=== PATIENT | male | born 1940 | race Caucasian/White ===

== ENCOUNTER → 2019-03-05 | Outpatient (CLI) | payer OTHER ==
[~2019-03-05] MED LIST: ACETAMINOPHEN325 MG PO; ADULT LOW DOSE81 MG PO; ADVAIR; ADVAIR 250-501 EACH INH; ASPIR 8181 MG PO; ATORVASTATIN CA40 MG PO; CARVEDILOL6.25 MG PO; COREG6.25 MG PO; IMDUR 30 MG TAB30 M1 PO; NITROGLYCERIN0.4 MG SUBLING; PLAVIX 75 MG TA75 M1 PO; RANEXA500 MG PO; VENTOLIN HFA 1818 GM INH
== END ==
LOC: M.ULTRA 14:30
DX: N28.89 Other specified disorders of kidney and ureter (principal); R33.9 Retention of urine, unspecified

== ENCOUNTER 2019-06-14 20:09 | Emergency (ER) | payer OTHER ==
[~2019-06-14] VITALS: Ht 170.2 cm; Wt 88.5 kg
[2019-06-14] MEDS ORDERED: NOHOMEMEDICATIONS (20:14)
[2019-06-14 20:37] LABS: ABSOLUTE BASOPHILS 0.1 thou/uL (0.0-0.2); ABSOLUTE EOSINOPHILS 0.2 thou/uL (0.0-0.7); ABSOLUTE LYMPHOCYTES 3.4 thou/uL (0.8-5.3); ABSOLUTE MONOCYTES 0.6 thou/uL (0.0-1.2); BASOPHILS 1.4 %; HEMATOCRIT 42.9 % (42.0-52.0); HEMOGLOBIN 14.8 gm/dL (14.0-18.0); LYMPHOCYTES 46.5 %; MCH 32.6 pg (26.0-34.0); MCHC 34.5 g/dL (28.0-37.0); MCV 94.3 fL (80.0-100.0); MONOCYTES 8.3 %; MPV 7.6 fl. (7.2-11.1); NUCLEATED RBCS 0 /100WBC; PLATELET COUNT* 209 thou/uL (150-400); POLYS 40.8 %; RBC 4.55 mil/uL (4.50-6.00); RDW-CV 13.3 % (10.5-14.5); WBC 7.4 thou/uL (4.0-11.0)
[2019-06-14 20:46] LABS: ANION GAP 6 mmol/L (7-16); BUN 16 mg/dL (7-18); CALCIUM 8.3 mg/dL (8.5-10.1); CHLORIDE 107 mmol/L (98-107); CO2 27 mmol/L (21-32); CREATININE 1.5 mg/dL (0.6-1.3); GLUCOSE 114 mg/dL (70-99); POTASSIUM 3.8 mmol/L (3.5-5.1); SODIUM 140 mmol/L (136-145)
[2019-06-14 20:55] LABS: ALBUMIN 3.1 g/dL (3.4-5.0); ALKALINE PHOSPHATASE 72 U/L (46-116); SGOT 23 U/L (15-37); SGPT 20 U/L (30-65); TOTAL PROTEIN 6.6 g/dL (6.4-8.2); TROPONIN-I LEVEL <0.06 ng/mL (<0.06)
[2019-06-14 22:04] LABS: URINE BILIRUBIN NEGATIVE (Negative); URINE BLOOD NEGATIVE (Negative); URINE CLARITY CLEAR; URINE COLOR YELLOW; URINE GLUCOSE-RANDOM NEGATIVE (Negative); URINE KETONES NEGATIVE (Negative); URINE LEUKOCYTES-REFLEX NEGATIVE (Negative); URINE NITRITE-REFLEX NEGATIVE (Negative); URINE PROTEIN NEGATIVE (Negative); URINE UROBILINOGEN 0.2 E.U./dl (0.2-1.0)
[2019-06-14 22:40] VITALS: BP 130/80
--- NOTE | 2019-06-15 12:01 | EKG ---
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: : 1940 Requested By: Cora Ohara Order Number: [id number] MD: Michael Whitehead Measurements Intervals [place] Rate: 73 P: 50 MN: 148 QRS: -29 QRSD: 101 T: 30 QT: 422 QTc: 465 Interpretive Statements Sinus rhythm Borderline left axis deviation Baseline wander in lead(s) V2 Compared to ECG 08/24/2014 08:26:26 No significant changes Electronically Signed On 06-15-2019 12:00:55 CDT by Michael Whitehead [email or web address] <ELECTRONICALLY SIGNED> By: Michael Whitehead MD, [facility] [id number] Michael Whitehead MD, [facility] /EPI
== END 2019-06-14 22:42 | disposition home or self-care (01) ==
LOC: M.ERS 20:09
PROVIDERS: Personal Emergency Response Attendant
DX: I10 Essential (primary) hypertension (principal); Z98.41 Cataract extraction status, right eye; Z98.42 Cataract extraction status, left eye; Z95.2 Presence of prosthetic heart valve; Z89.021 Acquired absence of right finger(s); Z88.6 Allergy status to analgesic agent